=== PATIENT | female | born 1980 | race Two or more races ===

== ENCOUNTER 2018-01-02 09:56 | Emergency (ER) | payer MEDICAID ==
[~2018-01-02] VITALS: Ht 162.6 cm; Wt 66.2 kg
[2018-01-02 10:18] VITALS: Ht 162.6 cm; Wt 66.2 kg
[2018-01-02 11:15] LABS: BASOPHIL % 0.6 % (0-2); PLATELET COUNT 359 x10^3mcL (130-400)
[2018-01-02 11:20] LABS: RED CELL DISTRIBUTION WIDTH 19.2 % (11.5-14.5)
[2018-01-02 14:25] VITALS: BP 113/68
== END 2018-01-02 14:25 | disposition home or self-care (01) ==
LOC: ED 09:56
PROVIDERS: Emergency Medicine
DX: O20.0 Threatened abortion (principal); Z3A.00 Weeks of gestation of pregnancy not specified; Z88.0 Allergy status to penicillin; Z88.5 Allergy status to narcotic agent
CPT/HCPCS: 36415

== ENCOUNTER 2018-01-04 12:09 | Emergency (ER) | payer MEDICAID ==
[~2018-01-04] VITALS: Ht 162.6 cm; Wt 65.1 kg
[2018-01-04 12:16] VITALS: Ht 162.6 cm; Wt 65.1 kg
[2018-01-04 12:53] LABS: BASOPHIL % 0.7 % (0-2); PLATELET COUNT 358 x10^3mcL (130-400)
[2018-01-04 13:15] VITALS: BP 118/64
== END 2018-01-04 13:54 | disposition home or self-care (01) ==
LOC: ED 12:09
PROVIDERS: Emergency Medicine
DX: O20.0 Threatened abortion (principal); R11.0 Nausea; R10.30 Lower abdominal pain, unspecified; Z88.0 Allergy status to penicillin; Z88.5 Allergy status to narcotic agent

== ENCOUNTER 2018-07-17 10:03 | Emergency (ER) | payer MEDICAID ==
[~2018-07-17] VITALS: Ht 162.6 cm; Wt 70.8 kg
[2018-07-17 10:07] VITALS: Ht 162.6 cm; Wt 70.8 kg
[2018-07-17 12:07] VITALS: BP 131/74
== END 2018-07-17 12:07 | disposition home or self-care (01) ==
LOC: ED 10:03
DX: R05 Cough (principal); R07.89 Other chest pain; R06.7 Sneezing; Z88.0 Allergy status to penicillin; Z88.5 Allergy status to narcotic agent

== ENCOUNTER 2018-08-08 06:15 | Emergency (ER) | payer MEDICAID ==
[~2018-08-08] VITALS: Ht 162.6 cm; Wt 69.4 kg
[2018-08-08 06:21] VITALS: Ht 162.6 cm; Wt 69.4 kg
[2018-08-08 06:45] VITALS: BP 134/71
== END 2018-08-08 06:45 | disposition home or self-care (01) ==
LOC: ED 06:15
DX: R07.89 Other chest pain (principal); J40 Bronchitis, not specified as acute or chronic; Z88.5 Allergy status to narcotic agent; Z88.0 Allergy status to penicillin

== ENCOUNTER 2018-08-27 06:27 | Emergency (ER) | payer MEDICAID ==
[~2018-08-27] VITALS: Ht 162.6 cm; Wt 69.2 kg
[2018-08-27 06:31] VITALS: Ht 162.6 cm; Wt 69.2 kg
[2018-08-27 07:22] LABS: BASOPHIL % 0.5 % (0-2); PLATELET COUNT 239 x10^3mcL (130-400); RED CELL DISTRIBUTION WIDTH 13.1 % (11.5-14.5)
[2018-08-27 07:44] LABS: CALCIUM 8.1 mg/dL (8.5-10.1); CARBON DIOXIDE 28.1 mmol/L (21-32); CHLORIDE SERUM 104 mmol/L (98-107); CREATININE SERUM 0.8 mg/dL (0.6-1.0); GFR1 > 60 mL/min; GLUCOSE SERUM 95 mg/dL (74-106); POTASSIUM SERUM 3.9 mmol/L (3.5-5.1); SODIUM SERUM 141 mmol/L (136-145)
[2018-08-27 07:56] LABS: ALBUMIN 3.7 g/dL (3.4-5.0); ALKALINE PHOSPHATASE 71 U/L (46-116); ALT/SGPT 19 U/L (14-59); AMYLASE 66 U/L (25-115); AST/SGOT 14 U/L (15-37); BILIRUBIN TOTAL 0.6 mg/dL (0.20-1.00); LIPASE 138 IU/L (73-393); TOTAL PROTEIN, SERUM 7.2 g/dL (6.4-8.2)
[2018-08-27 08:21] LABS: UA SPECIFIC GRAVITY 1.025 (1.005-1.035); microscopic required? YES; urine erythrocyte 3+ (NEGATIVE)
[2018-08-27 10:30] VITALS: BP 124/80
== END 2018-08-27 10:30 | disposition home or self-care (01) ==
LOC: ED 06:27
PROVIDERS: Emergency Medicine
DX: R10.30 Lower abdominal pain, unspecified (principal); N80.9 Endometriosis, unspecified; D64.9 Anemia, unspecified; Z88.0 Allergy status to penicillin; Z88.5 Allergy status to narcotic agent; Z98.890 Other specified postprocedural states
CPT/HCPCS: 36415; J1885

== ENCOUNTER 2018-11-14 06:16 | Emergency (ER) | payer MEDICAID | END 2018-11-14 09:20 | disposition home or self-care (01) | LOC: ED 06:16 ==